=== PATIENT | male | born 1980 | race Hispanic/Latino ===

== ENCOUNTER 2017-02-28 20:29 | Emergency (ER) | payer SELFPAY ==
[2017-02-28 20:30] VITALS: BMI 31.6
[2017-02-28 20:35] VITALS: TEMP 98
[2017-02-28] MEDS ORDERED: Pedialyte 1000 ml PO ONE (20:48)
--- NOTE | 2017-02-28 21:01 | ED PDOC ---
Arrival/HPI - General Chief Complaint: Alcohol Ingestion Time Seen by Provider: 02/28/17 20:40 Historian: Patient - History of Present Illness Narrative History of Present Illness (Text): 02/28/17 21:00 A 36 year old male, whose past medical history includes alcohol abuse and seizures from alcohol withdrawals, presents to the emergency department for alcohol withdrawal complaining of sweats, chills, nausea and vomiting. Patient reports he drank last night, drinks about half a gallon of alcohol daily. Patient smokes a pack of cigarettes per day, but denies any smoking today. Reports some abdominal cramping but denies any suicidal ideation, homicidal ideation or any other complaints at this time. Denies any opioid use. Symptom Onset: Sudden Symptom Course: Unchanged Activities at Onset: Rest Context: Home Past Medical History - Provider Review Nursing Documentation Reviewed: Yes - Tetanus Immunization Tetanus Immunization: Up to Date - Cardiac Hx Cardiac Disorders: No (Pt denies) Hx Hypertension: No (Pt denies) - Pulmonary Hx Tuberculosis: No (Pt denies) - Neurological HX Cerebrovascular Accident: No (Pt denies) Hx Seizures: No (Pt denies) - HEENT Hx HEENT Disorder: No - Renal Hx Renal Disorder: No - Endocrine/Metabolic Hx Endocrine Disorders: No - Hematological/Oncological Hx Cancer: No (Pt denies) - Integumentary Hx Dermatological Disorder: No - Musculoskeletal/Rheumatological Hx Musculoskeletal Disorders: No - Gastrointestinal Hx Gastrointestinal Disorders: Yes - Genitourinary/Gynecological Hx Sexually Transmitted Diseases: No (Pt denies) - Psychiatric Hx Psychophysiologic Disorder: Yes Hx Substance Use: Yes ([place] daily) - Past Surgical History Past Surgical History: Non-Contributing - Surgical History Hx Orthopedic Surgery: Yes (right knee) Other/Comment: inguinal hernia repair - Anesthesia Hx Anesthesia: No - Suicidal Assessment Feels Threatened In Home Enviroment: No Family/Social History - Physician Review Nursing Documentation Reviewed: Yes Family/Social History: Other (non contributory) Smoking Status: Heavy Smoker > 10 Cigarettes Daily Hx Alcohol Use: Yes Frequency of alcohol use: Daily Hx Substance Use: Yes ([place] daily) Substance used: cocaine, marijuana, ecstacy Hx Substance Use Treatment: No Allergies/Home Meds Allergies/Adverse Reactions: Allergies No Known Allergies Allergy (Verified 04/01/14 22:34) Home Medications: Home Meds Medication Instructions Recorded Confirmed No Known Home Med 02/28/17 02/28/17 Review of Systems - Physician Review All systems were reviewed & negative as marked: Yes - Review of Systems Constitutional: Other (sweats and chills) Gastrointestinal: Nausea, Vomiting, Other (abdominal cramping) Psychiatric: absent: Suicidal Ideation, Other (homicidal ideation) Physical Exam Vital Signs Reviewed: Yes Vital Signs Temp Pulse Resp BP Pulse Ox 02/28/17 20:35 98 F 47 L 28 H 152/72 H 99 Appearance: Positive for: Well-Appearing Pain Distress: None Mental Status: Positive for: Alert and Oriented X 3 - Systems Exam Head: Present: Atraumatic, Normocephalic Pupils: Present: PERRL Extroacular Muscles: Present: EOMI Conjunctiva: Present: Normal Mouth: Present: Moist Mucous Membranes Neck: Present: Normal Range of Motion Respiratory/Chest: Present: Clear to Auscultation, Good Air Exchange. No: Respiratory Distress, Accessory Muscle Use Cardiovascular: Present: Regular Rate and Rhythm, Normal S1, S2. No: Murmurs Abdomen: Present: Normal Bowel Sounds. No: Tenderness, Distention, Peritoneal Signs Back: Present: Normal Inspection Upper Extremity: Present: Other (very mild tremor in hands). No: Cyanosis, Edema Lower Extremity: Present: Normal Inspection. No: Edema Neurological: Present: GCS=15, CN II-XII Intact, Speech Normal Skin: Present: Warm, Dry, Normal Color. No: Rashes Psychiatric: Present: Alert, Oriented x 3, Normal Insight, Normal Concentration Medical Decision Making ED Course and Treatment: 02/28/17 22:23 the pt reports feeling better. I offered to attempt to transfer him to a detox center however he wishes to leave now. his father will pick him up. - Medication Orders Current Medication Orders: Discontinued Medications Chlordiazepoxide (Librium) 100 mg PO STAT STA PRN Reason: Protocol Stop: 02/28/17 20:49 Last Admin: 02/28/17 21:16 Dose: 100 mg Ondansetron HCl (Zofran Odt) 4 mg PO STAT STA Stop: 02/28/17 20:49 Last Admin: 02/28/17 21:16 Dose: 4 mg Oral Electrolytes (Pedialyte) 1,000 ml PO ONCE ONE Stop: 02/28/17 20:49 Last Admin: 02/28/17 21:17 Dose: 1,000 ml - Scribe Statement The provider has reviewed the documentation as recorded by the Jennifer Jorge Provider Farshadibkorina Attestation: All medical record entries made by the Farshadibe were at my direction and personally dictated by me. I have reviewed the chart and agree that the record accurately reflects my personal performance of the history, physical exam, medical decision making, and the department course for this patient. I have also personally directed, reviewed, and agree with the discharge instructions and disposition. Disposition/Present on Arrival - Present on Arrival Any Indicators Present on Arrival: No History of DVT/PE: No History of Uncontrolled Diabetes: No Urinary Catheter: No History of Decub. Ulcer: No History Surgical Site Infection Following: None - Disposition Have Diagnosis and Disposition been Completed?: Yes Diagnosis: Alcohol withdrawal Disposition: HOME/ ROUTINE Disposition Time: 22:24 Condition: IMPROVED Referrals: PCP,NO [Primary Care Provider] - Follow up with primary Forms: Delivery Agent ([place])
[2017-02-28 22:43] VITALS: BP 113/64; PULSE 55; RESP 16; O2SAT 98
== END 2017-02-28 22:43 | disposition home or self-care (01) ==
LOC: ED 20:29
DX: F10.239 Alcohol dependence with withdrawal, unspecified (principal); Y90.9 Presence of alcohol in blood, level not specified